=== PATIENT | female | born 1945 | race Caucasian/White ===

== ENCOUNTER 2018-05-18 12:22 | Observation (INO) ==
[2018-05-18] MEDS ORDERED: Acetaminophen 325 MG Tablet PO ONE (13:21)
[2018-05-18 13:29] LABS: Baso % (Auto) 0.3 % (0.0-2.0); Eos % (Auto) 0.2 % (0.0-4.0); Hematocrit 35.5 % (35.0-46.0); Hemoglobin 11.9 gm/dL (11.6-15.3); Lymph # (Auto) 0.4 th/mm3 (1.0-4.8); Lymph % (Auto) 3.9 % (9.0-44.0); Mean Corpuscular HGB Conc 33.5 % (32.0-36.0); Mean Corpuscular Hemoglobin 27.6 pg (27.0-34.0); Mean Corpuscular Volume 82.3 fL (80.0-100.0); Mean Platelet Volume 8.4 fL (7.0-11.0); Mono # (Auto) 0.4 th/mm3 (0.0-0.9); Neut # (Auto) 8.5 th/mm3 (1.8-7.7); Neut % (Auto) 91.6 % (16.0-70.0); Platelet Count 202 th/mm3 (150-450); Red Blood Count 4.32 mil/mm3 (4.00-5.30); White Blood Count 9.2 th/mm3 (4.0-11.0)
--- NOTE | 2018-05-18 13:29 | XR ---
EXAM DATE: 05/18/2018 12:52 PM EDT AGE/SEX: 73 years / Female INDICATIONS: . COPD. Cold symptoms for 7 hours. CLINICAL DATA: This is the patient's initial encounter. Patient reports that signs and symptoms have been present for 1 day and indicates a pain score of 0/10. MEDICAL/SURGICAL HISTORY: None. . Pain pump. COMPARISON: No prior exams available for comparison. FINDINGS: PA lateral views of the chest demonstrate a large area of ill-defined airspace consolidation involvin g the left upper lobe and left lower lobe. The right hemithorax is clear. Heart size is normal. Bony vasculature is normal in caliber. Osseous structures demonstrate severe degenerative changes within t he left glenohumeral joint. Neurostimulator overlying the thoracic spine. CONCLUSION: Multifocal airspace abnormality within the left upper lobe and left upper lobe consistent with multif ocal pneumonia. Recommend follow-up radiographs after appropriate antibiotic therapy to evaluate for resolution. Electronically signed by: Krystal Bullock MD 05/18/2018 1:27 PM EDT
[2018-05-18] MEDS ORDERED: Azithromycin Inj 500 MG in Sodium Chlor 0.9% Inj 250 ML IV.SIG ONE (13:38)
[2018-05-18 13:49] LABS: Albumin 3.2 g/dL (3.4-5.0); Anion Gap 8 meq/L (5-15); Aspartate Aminotransferase 30 U/L (15-37); Blood Urea Nitrogen 16 mg/dL (7-18); Calcium 7.8 mg/dL (8.5-10.1); Carbon Dioxide 27.1 meq/L (21.0-32.0); Chloride 103 meq/L (98-107); Glomerular Filtration Rate 39 mL/min (>89); Glucose,Random 107 mg/dL (74-106); Potassium 4.1 meq/L (3.5-5.1); Sodium 138 meq/L (136-145)
[2018-05-18 13:51] LABS: Alanine Aminotransferase 20 U/L (10-53); Alkaline Phosphatase 76 U/L (45-117); Total Protein 7.1 g/dL (6.4-8.2)
[2018-05-18 14:31] LABS: Bacteria,Urine Moderate /hpf; Bilirubin,Urine Negative (Negative); Clarity,Urine Cloudy (Clear); Color,Urine Yellow (Yellw/Straw); Glucose,Urine (UA) Negative (Negative); Hyaline Casts,Urine 1 /lpf (0-3); Leukocyte Esterase,Urine Negative (Negative); Mucus,Urine Few /lpf (Occasional); Nitrite,Urine Negative (Negative); Specific Gravity,Urine 1.016 (1.002-1.035); Squamous Epithelial Cell,Urine 22 /hpf (0-5)
--- NOTE | 2018-05-18 15:03 | P.HPIM ---
History of Present Illness Primary Care Physician: Hanna Carrillo History of Present Illness: 73 year old female with history of HTN, depression, chronic back pain , and recent pneumonias presenting with cough and shortness of breath starting this morning. She is currently in town on vacation. She lives in the [facility]. She reports she has had two bouts of pneumonia in the past six months, both requiring hospitalizations over a week. She never needed to be intubated. She had a heart catheterization during one of the hospitalizations that was reportedly negative. This morning she woke up with a dry cough and shortness of breath. She endorses chest pain with the cough and chills. She is currently being treated with Bactrim for a UTI but reports continued intermittent dysuria and urinary urgency. She denies sick contacts. She recently travelled [place] plane approximately three weeks ago. She denies a history of heart failure. She complains of mild ankle edema but she states this is chronic for her. She hasn't had a flu shot this season. She states she has been vaccinated twice for pneumonia. Discussed w/ patient's [id number] who is a general practitioner. The patient was suspected to have microaspirations that caused her prior to pneumonias that she believed were both in the right lung. Her last hospitalization was in December. She does not think she has ever had a swallow study and she does not follow with pulmonology. She is grateful her mother in law is being kept overnight because she feels like her pulmonary status has been frail in the last 6 months. PMH: HTN, depression, chronic back pain Surgical hx: hysterectomy, tonsillectomy, ?appendectomy, spinal stimulator, gastric bypass (unsure if [id number] or lap band) Social hx: Lives with in the [facility], drinks EtOH about once a month, nonsmoker (smoked briefly as a teen) Family hx: mother had COPD, father had DM, sisters with RA, MS - Diagnosis (1) Pneumonia [facility] - History History Provided By: Patient, Family Member - Medical History Medical History: Medical History (Last Reviewed 05/18/18 @ 15:02 by DIANELYS Valenzuela) Abscess of lung with pneumonia HTN (hypertension) Pain Spinal cord stimulator status UTI (urinary tract infection) - Tobacco History Smoking Status: Never smoker - Alcohol History How Often Do You Have a Drink Containing Alcohol: Monthly or less - Substance Use History Substance History: No History of Abuse - Travel History Recent Travel in the [place] Within the Last 8 Weeks: No Recent Travel Out of the Country Within the Last 8 Weeks: No - Immunization History Tetanus Immunization: <5 Years Medications and Allergies Allergies Allergy/AdvReac Type Severity Reaction Status Date / Time No Known Allergies Allergy Verified 05/18/18 12:36 Home Medications Medication Instructions Recorded Confirmed Type atenolol 100 mg PO DAILY 05/18/18 05/18/18 History estradiol 1 patch TRANSDERMAL QWEEK 05/18/18 05/18/18 History gabapentin 300 mg PO BID 05/18/18 05/18/18 History hydrochlorothiazide 25 mg PO DAILY 05/18/18 05/18/18 History mirabegron [Myrbetriq] 25 mg PO DAILY 05/18/18 05/18/18 History morphine 15 mg PO Q8HR 05/18/18 05/18/18 History omeprazole 40 mg PO BID 05/18/18 05/18/18 History pantoprazole 40 mg PO BID 05/18/18 05/18/18 History ropinirole [Requip] 1 mg PO DAILY 05/18/18 05/18/18 History sertraline [Zoloft] 100 mg PO DAILY 05/18/18 05/18/18 History sulfamethoxazole-trimethoprim 1 tab PO BID 05/18/18 05/18/18 History [Bactrim DS] trazodone 100 mg PO DAILY 05/18/18 05/18/18 History Exam Vital signs: Vital Signs 05/18/18 12:31 05/18/18 13:00 05/18/18 13:04 Temperature 100.6 F H Pulse Rate 59 L 64 61 Respiratory Rate 20 16 Blood Pressure 132/62 154/60 H Pulse Oximetry 90 L 96 05/18/18 13:41 05/18/18 14:36 Temperature Pulse Rate 64 Respiratory Rate 20 Blood Pressure Pulse Oximetry 96 Intake & Output 05/17/18 05/18/18 05/18/18 18:59 06:59 18:59 Intake Total 100 / 100 Balance 100 / 100 Weight 95.708 kg Intake: IV 100 / 100 Maxipime Inj 1,000 MG In NS Inj 100 / 100 100 ML @ 200 mls/hr IV.SIG ONCE ONE Rx#:[id number] Narrative: GENERAL: WN, WD female resting in bed in [facility]. SKIN: Warm and dry. HEENT: AT/NC. Pupils equal and round. MMM. Nasal cannula in place. NECK: Supple no tender LAD or JVD. HEART: RRR no m/r/g. LUNGS: Left lung cristina with diffuse crackles. ABDOMEN: +BS, soft, NT, ND. EXTREMITIES: Trace LE edema. 2+ pedal pulses. Calves supple with no tenderness. NEURO: Awake and alert. PSYCH: Appropriate mood and affect. Results - Labs CBC & Chem 7: 05/18/18 13:10 05/18/18 13:10 Labs: Short CBC 05/18/18 Range/Units 13:10 WBC 9.2 (4.0-11.0) th/mm3 Hgb 11.9 (11.6-15.3) gm/dL Hct 35.5 (35.0-46.0) % Plt Count 202 (150-450) th/mm3 BMP 05/18/18 13:10 Sodium 138 Potassium 4.1 Chloride 103 Carbon Dioxide 27.1 BUN 16 Creatinine 1.34 H Calcium 7.8 L Liver Function 05/18/18 Range/Units 13:10 Total Bilirubin 0.7 (0.2-1.0) mg/dL AST 30 (15-37) U/L ALT 20 (10-53) U/L Alkaline Phosphatase 76 (45-117) U/L Albumin 3.2 L (3.4-5.0) g/dL Urine 05/18/18 Range/Units 13:30 Urine Color Yellow (Yellw/Straw) Urine Clarity Cloudy H (Clear) Urine pH 5.0 (5.0-8.5) Ur Specific [place] 1.016 (1.002-1.035) Urine Protein Negative (Neg-Trace) mg/dL Urine Glucose (UA) Negative (Negative) mg/dL - Imaging Impressions Chest X-Ray 05/18/18 12:52 CONCLUSION: Multifocal airspace abnormality within the left upper lobe and left upper lobe consistent with multifocal pneumonia. Recommend follow-up radiographs after appropriate antibiotic therapy to evaluate for resolution. Caprini VTE Risk Assessment Caprini VTE Risk Assessment: Moderate/High Risk (score >= 2) Caprini Risk Assessment Model: Point Value = 1 Point Value = 2 Point Value = 3 Point Value = 5 Age 41-60 Minor surgery BMI > 25 kg/m2 Swollen legs Varicose veins or History of unexplained or recurrent spontaneous Oral contraceptives or hormone replacement Sepsis (< 1 month) Serious lung disease, including pneumonia (< 1 month) Abnormal pulmonary function Acute myocardial infarction Congestive heart failure (< 1 month) History of inflammatory bowel disease Medical patient at bed rest Age 61-74 Arthroscopic surgery Major open surgery (> 45 min) Laparoscopic surgery (> 45 min) Malignancy Confined to bed (> 72 hours) Immobilizing plaster cast Central venous access Age >= 75 History of VTE Family history of VTE Factor V Leiden Prothrombin [id number] Lupus anticoagulant Anticardiolipin antibodies Elevated serum homocysteine Heparin-induced thrombocytopenia Other congenital or acquired thrombophilia Stroke (< 1 month) Elective arthroplasty Hip, pelvis, or leg fracture Acute spinal cord injury (< 1 month) Prophylaxis Regimen: Total Risk Factor Score Risk Level Prophylaxis Regimen 0-1 Low Early ambulation 2 Moderate Order ONE of the following: *Sequential Compression Device (SCD) *Heparin 5000 units SQ BID 3-4 Higher Order ONE of the following medications: *Heparin 5000 units SQ TID *Enoxaparin/Lovenox 40 mg SQ daily (WT < 150 kg, CrCl > 30 mL/min) *Enoxaparin/Lovenox 30 mg SQ daily (WT < 150 kg, CrCl > 10-29 mL/min) *Enoxaparin/Lovenox 30 mg SQ BID (WT < 150 kg, CrCl > 30 mL/min) AND/OR *Sequential Compression Device (SCD) 5 or more Highest Order ONE of the following medications: *Heparin 5000 units SQ TID (Preferred with Epidurals) *Enoxaparin/Lovenox 40 mg SQ daily (WT < 150 kg, CrCl > 30 mL/min) *Enoxaparin/Lovenox 30 mg SQ daily (WT < 150 kg, CrCl > 10-29 mL/min) *Enoxaparin/Lovenox 30 mg SQ BID (WT < 150 kg, CrCl > 30 mL/min) AND *Sequential Compression Device (SCD) Assessment and Plan - Assessment (1) Pneumonia Code(s): J18.9 - Pneumonia, unspecified organism Status: Acute - Plan 73 YOWF with history of HTN, chronic back pain, and depression admitted for pneumonia. 1. Pneumonia Temperature 100.6 on admission No leukocytosis and lactic acid within normal limits 90% on room air on admission up to 96% with 2 L CXR showing multifocal pneumonia of the left lobe, personally reviewed by myself PSI class III based on renal disease Supplemental O2 PRN DuoNeb every q6 Albuterol nebs q2h prn Given hospitalization within last 30 days will cover for H CAP with cefepime and azithromycin Influenza antigens pending Blood cultures pending Check Legionella and pneumococcal urinary antigens Unlikely to be aspiration related since it is on the left side and the diffuse nature of the pneumonia, however will check a swallow study given prior concern for recurrent aspiration pneumonia 2. Renal insufficiency Patient denies any history of kidney disease and this is her first hospitalization here so no baseline to compare Was on Bactrim as outpatient which could be contributing Creatinine 1.34, BUN 16, and estimated GFR 39 Avoid nephrotoxic agents Continue monitor renal function 3. UTI Diagnosed an outpatient and has been on Bactrim for a few days UA showing moderate bacteria and occasional yeast and patient otherwise asymptomatic Urine culture pending Will cover with cefepime for now 4. Hypertension Resume home meds and monitor 5. Chronic back pain Spinal stimulator in place Resume home morphine and gabapentin 6. Depression Continue home Zoloft and trazodone DVT prophylaxis: Heparin BID Code Status: FULL Discussed Condition With: Patient and family (1) Pneumonia Qualifiers: Pneumonia type: due to unspecified organism Laterality: left Lung location: lower lobe of lung Qualified Code(s): J18.1 - Lobar pneumonia, unspecified organism
--- NOTE | 2018-05-18 15:05 | ED ---
HPI General Chief Complaint: Respiratory Symptoms Stated Complaint: respiratory Time Seen by Provider: 05/18/18 12:37 Source: patient and family Mode of arrival: wheelchair Limitations: no limitations History of Present Illness HPI Narrative: 73-year-old female with a substantial history of pneumonia in the past, back problems as well as diabetes. Patient presents here today complaining of cough and congestion and shortness of breath as well as not feeling well. Per patient she is had 2 episodes of pneumonia this year. Per patient her first time she was admitted for 10 days and the second time she was admitted for 8 days. Per patient she has been on antibiotics for the past weeks for a UTI. She is taking Bactrim twice a day. States that her urine symptoms appear to have improved but she continues to have some symptoms there. Per patient her main complaint is that she is having cough and congestion and some shortness of breath. She does not use oxygen at home. She denies any trauma. No recent travel although she did went to [place] about 3 weeks ago but had no symptoms at the time. She denies any history of COPD. Denies any history of asthma. Has not seen anybody for this. States that currently she has no pain. Per patient she does have a lot of bad cough. No history of heart failure. States having fevers chills and sweats. Related Data Home Medications Medication Instructions Recorded Confirmed atenolol 100 mg PO DAILY 05/18/18 05/18/18 estradiol 1 patch TRANSDERMAL QWEEK 05/18/18 05/18/18 gabapentin 300 mg PO BID 05/18/18 05/18/18 hydrochlorothiazide 25 mg PO DAILY 05/18/18 05/18/18 mirabegron [Myrbetriq] 25 mg PO DAILY 05/18/18 05/18/18 morphine 15 mg PO Q8HR 05/18/18 05/18/18 omeprazole 40 mg PO BID 05/18/18 05/18/18 pantoprazole 40 mg PO BID 05/18/18 05/18/18 ropinirole [Requip] 1 mg PO DAILY 05/18/18 05/18/18 sertraline [Zoloft] 100 mg PO DAILY 05/18/18 05/18/18 sulfamethoxazole-trimethoprim 1 tab PO BID 05/18/18 05/18/18 [Bactrim DS] trazodone 100 mg PO DAILY 05/18/18 05/18/18 Allergies Allergy/AdvReac Type Severity Reaction Status Date / Time No Known Allergies Allergy Verified 05/18/18 12:36 Review of Systems ROS: all other systems reviewed are negative [facility], [facility] Medical History Medical History Abscess of lung with pneumonia (Acute) HTN (hypertension) (Acute) Pain (Acute) Spinal cord stimulator status (Acute) UTI (urinary tract infection) (Acute) Social History Social History Substance History: No History of Abuse Smoking Status: Never smoker How Often Do You Have a Drink Containing Alcohol: Monthly or less Recent Travel in [facility] within the Last 8 Weeks: No Recent Out of Country Travel within the Last 8 Weeks: No Immunization History Tetanus Immunization: <5 Years Exam Narrative Exam Narrative: GENERAL: Well appearing SKIN: Focused skin assessment warm/dry. HEAD: Atraumatic. Normocephalic. EYES: Pupils equal and round. No scleral icterus. No injection or drainage. ENT: No nasal bleeding or discharge. Mucous membranes pink and moist. Tongue is midline. No uvula deviation. TMs are clear with no sign of infection or perforation. NECK: Trachea midline. No JVD. CARDIOVASCULAR: Regular rate and rhythm. No murmur appreciated. RESPIRATORY: No accessory muscle use. Wheezing and rales heard especially in the left lower lung field. Breath sounds equal bilaterally. GASTROINTESTINAL: Abdomen soft, non-tender, nondistended. Hepatic and splenic margins not palpable. MUSCULOSKELETAL: No obvious deformities. No clubbing. No cyanosis. No edema. Full range of motion of the upper and lower extremities bilaterally. 2+ pulses bilaterally. NEUROLOGICAL: Awake and alert. No obvious cranial nerve deficits. Motor grossly within normal limits. Normal speech. PSYCHIATRIC: Appropriate mood and affect; insight and judgment normal. Course Initial Documented Vital Signs Temperature 100.6 F H 05/18/18 12:31 Pulse Rate 59 L 05/18/18 12:31 Blood Pressure 132/62 05/18/18 12:31 Pulse Oximetry 90 L 05/18/18 12:31 Last Documented Vital Signs Temperature 100.6 F H 05/18/18 12:31 Pulse Rate 64 05/18/18 14:36 Respiratory Rate 20 05/18/18 14:36 Blood Pressure 154/60 H 05/18/18 13:04 Pulse Oximetry 96 05/18/18 13:41 Medical Decision Making SOLOMON Attestation SOLOMON supervised visit: Yes Attestation: I, Dr. Huang, have reviewed the advance practice practitioner's documentation and am in agreement, met with the patient face to face, made the diagnosis, and the medical decision making was done by me. *My assessment and Findings: Patient was seen and evaluated with PA, please see PA notes for further details. She has been on Bactrim for UTI, is coming in for coughing, shortness of breath, and on exam is wheezing. Chest x-ray showing pneumonia left-sided infiltrates worse in the right. Considering that she has been on antibiotics readiness L having worsening in, patient has been treated with IV antibiotics after cultures are drawn and nebulizers were initiated in the ER. Planning to admit for further treatment. MDM Narrative Medical decision making narrative: 73-year-old female that presents to the ED for evaluation of cold-like symptoms. Patient was properly examined and was found to have signs and symptoms consistent concerning for pneumonia. Patient is tachycardic, hypoxic in the 90s without oxygen and appears to have a fever. Labs and imaging were ordered. Labs and imaging were consistent with appears to be multilevel pneumonia on the left side. With patient's history of already been on Bactrim for antibiotics there is concerned that this will not improve with IV antibiotics. Patient is also hypoxic without oxygen. Patient does not routinely use oxygen at home. At this time recommendation is for admission for him for further evaluation and treatment. Case discussed with Dr. Verde who agrees to admission. Case discussed with the patient's family and patient who agree with plan. Case discussed with my attending who agrees with plan. Medical Screen Exam Complete: Yes Emergency Medical Condition: Yes Differential Diagnosis Differential Diagnosis: Pneumonia versus community pneumonia versus failed outpatient treatment versus UTI versus sepsis versus hypoxia Medical Records Medical records reviewed: Yes I reviewed the patient's medical records. Lab Data Lab results reviewed: Yes I reviewed the patient's lab results. Result diagrams: 05/18/18 13:10 05/18/18 13:10 Lab Results 05/18/18 05/18/18 05/18/18 Range/Units 13:10 13:10 13:10 WBC 9.2 (4.0-11.0) th/mm3 RBC 4.32 (4.00-5.30) mil/mm3 Hgb 11.9 (11.6-15.3) gm/dL Hct 35.5 (35.0-46.0) % MCV 82.3 (80.0-100.0) fL MCH 27.6 (27.0-34.0) pg MCHC 33.5 (32.0-36.0) % RDW 16.0 (11.6-17.2) % Plt Count 202 (150-450) th/mm3 MPV 8.4 (7.0-11.0) fL Neut % (Auto) 91.6 H (16.0-70.0) % Lymph % (Auto) 3.9 L (9.0-44.0) % [place] % (Auto) 4.0 (0.0-8.0) % Eos % (Auto) 0.2 (0.0-4.0) % Baso % (Auto) 0.3 (0.0-2.0) % Neut # (Auto) 8.5 H (1.8-7.7) th/mm3 Lymph # (Auto) 0.4 L (1.0-4.8) th/mm3 [place] # (Auto) 0.4 (0.0-0.9) th/mm3 Eos # (Auto) 0.0 (0.0-0.4) th/mm3 Baso # (Auto) 0.0 (0.0-0.2) th/mm3 WBC Differential . Differential Comment Auto diff final Sodium 138 (136-145) meq/L Potassium 4.1 (3.5-5.1) meq/L Chloride 103 (98-107) meq/L Carbon Dioxide 27.1 (21.0-32.0) meq/L Anion Gap 8 (5-15) meq/L BUN 16 (7-18) mg/dL Creatinine 1.34 H (0.50-1.00) mg/dL Estimated GFR 39 L (>89) mL/min Random Glucose 107 H (74-106) mg/dL Lactic Acid (0.4-2.0) mmol/L Calcium 7.8 L (8.5-10.1) mg/dL Total Bilirubin 0.7 (0.2-1.0) mg/dL AST 30 (15-37) U/L ALT 20 (10-53) U/L Alkaline Phosphatase 76 (45-117) U/L B-Natriuretic Peptide 260 H (0-100) pg/mL Total Protein 7.1 (6.4-8.2) g/dL Albumin 3.2 L (3.4-5.0) g/dL Urine Color (Yellw/Straw) Urine Clarity (Clear) Urine pH (5.0-8.5) Ur Specific [place] (1.002-1.035) Urine Protein (Neg-Trace) mg/dL Urine Glucose (UA) (Negative) mg/dL Urine Ketones (Negative) mg/dL Urine Occult Blood (Negative) Urine Nitrate (Negative) Urine Bilirubin (Negative) Urine Urobilinogen (Less than 2) mg/dL Ur Leukocyte Esterase (Negative) Urine RBC (0-3) /hpf Urine WBC (0-5) /hpf Ur Squamous Epith Cells (0-5) /hpf Urine Bacteria (None) /hpf Hyaline Casts (0-3) /lpf Urine Mucus (Occasional) /lpf Urine Yeast (None) /hpf Micro UA Comment Ur Microscopic Review Urine Culture Comments 05/18/18 05/18/18 Range/Units 13:10 13:30 WBC (4.0-11.0) th/mm3 RBC (4.00-5.30) mil/mm3 Hgb (11.6-15.3) gm/dL Hct (35.0-46.0) % MCV (80.0-100.0) fL MCH (27.0-34.0) pg MCHC (32.0-36.0) % RDW (11.6-17.2) % Plt Count (150-450) th/mm3 MPV (7.0-11.0) fL Neut % (Auto) (16.0-70.0) % Lymph % (Auto) (9.0-44.0) % [place] % (Auto) (0.0-8.0) % Eos % (Auto) (0.0-4.0) % Baso % (Auto) (0.0-2.0) % Neut # (Auto) (1.8-7.7) th/mm3 Lymph # (Auto) (1.0-4.8) th/mm3 [place] # (Auto) (0.0-0.9) th/mm3 Eos # (Auto) (0.0-0.4) th/mm3 Baso # (Auto) (0.0-0.2) th/mm3 WBC Differential Differential Comment Sodium (136-145) meq/L Potassium (3.5-5.1) meq/L Chloride (98-107) meq/L Carbon Dioxide (21.0-32.0) meq/L Anion Gap (5-15) meq/L BUN (7-18) mg/dL Creatinine (0.50-1.00) mg/dL Estimated GFR (>89) mL/min Random Glucose (74-106) mg/dL Lactic Acid 1.7 (0.4-2.0) mmol/L Calcium (8.5-10.1) mg/dL Total Bilirubin (0.2-1.0) mg/dL AST (15-37) U/L ALT (10-53) U/L Alkaline Phosphatase (45-117) U/L B-Natriuretic Peptide (0-100) pg/mL Total Protein (6.4-8.2) g/dL Albumin (3.4-5.0) g/dL Urine Color Yellow (Yellw/Straw) Urine Clarity Cloudy H (Clear) Urine pH 5.0 (5.0-8.5) Ur Specific [place] 1.016 (1.002-1.035) Urine Protein Negative (Neg-Trace) mg/dL Urine Glucose (UA) Negative (Negative) mg/dL Urine Ketones Negative (Negative) mg/dL Urine Occult Blood Negative (Negative) Urine Nitrate Negative (Negative) Urine Bilirubin Negative (Negative) Urine Urobilinogen 2.0 H (Less than 2) mg/dL Ur Leukocyte Esterase Negative (Negative) Urine RBC 1 (0-3) /hpf Urine WBC 1 (0-5) /hpf Ur Squamous Epith Cells 22 (0-5) /hpf Urine Bacteria Moderate H (None) /hpf Hyaline Casts 1 (0-3) /lpf Urine Mucus Few H (Occasional) /lpf Urine Yeast Occasional H (None) /hpf Micro UA Comment Culture indicated Ur Microscopic Review Not Reportable Urine Culture Comments Culture indicated Imaging Data Attestation: I personally reviewed and interpreted this imaging study as follows : Radiologist's impression: Chest X-Ray 05/18/18 12:52 CONCLUSION: Multifocal airspace abnormality within the left upper lobe and left upper lobe consistent with multifocal pneumonia. Recommend follow-up radiographs after appropriate antibiotic therapy to evaluate for resolution. Discharge Plan Discharge Disposition Patient Disposition: 30 Still Patient Discharge Details Diagnosis: Pneumonia Physicians Team ED Provider: Benjamin Huang ED Midlevel Provider: Stephen Donovan Attending Provider: Jaleesa Pereira Status ED Status: Admitted Patient
[2018-05-18] MEDS ORDERED: Acetaminophen 325 MG Tablet PO PRN (15:17)
[2018-05-18] MEDS ORDERED: Bisacodyl 10 MG Supp RECTAL PRN (15:17)
[2018-05-18] MEDS ORDERED: traZODone 100 MG Tablet PO SCH (21:00)
[2018-05-18] MEDS: Heparin - SQ 10,000 UNITS/ML Vial SQ SCH (22:18)
[2018-05-18] MEDS: Gabapentin 300 MG Capsule PO SCH (22:19)
[2018-05-18] MEDS: Senna/Docusate Sodium 8.6/50 MG Tablet PO SCH ×2 (22:20→22:28)
[2018-05-18] MEDS: Morphine Sulfate 15 MG IR Tablet PO SCH (22:20)
[2018-05-19] MEDS: Morphine Sulfate 15 MG IR Tablet PO SCH (06:40)
[2018-05-19 07:58] LABS: Baso % (Auto) 0.3 % (0.0-2.0); Eos # (Auto) 0.1 th/mm3 (0.0-0.4); Eos % (Auto) 0.9 % (0.0-4.0); Hematocrit 27.1 % (35.0-46.0); Hemoglobin 9.4 gm/dL (11.6-15.3); Lymph % (Auto) 18.8 % (9.0-44.0); Mean Corpuscular HGB Conc 34.8 % (32.0-36.0); Mean Corpuscular Hemoglobin 28.3 pg (27.0-34.0); Mean Corpuscular Volume 81.3 fL (80.0-100.0); Mean Platelet Volume 8.4 fL (7.0-11.0); Mono # (Auto) 0.3 th/mm3 (0.0-0.9); Mono % (Auto) 5.6 % (0.0-8.0); Neut % (Auto) 74.4 % (16.0-70.0); Platelet Count 134 th/mm3 (150-450); Red Blood Count 3.33 mil/mm3 (4.00-5.30); Red Cell Distribution Width 15.8 % (11.6-17.2); White Blood Count 5.4 th/mm3 (4.0-11.0)
[2018-05-19 08:15] VITALS: BP 125/59; PULSE 67; RESP 16; TEMP 98.6; O2SAT 95
[2018-05-19 08:25] LABS: Calcium 7.7 mg/dL (8.5-10.1); Carbon Dioxide 29.9 meq/L (21.0-32.0); Potassium 3.4 meq/L (3.5-5.1)
--- NOTE | 2018-05-19 08:32 | P.DS ---
Date of admission: 05/18/18 14:53 Primary care physician: Hanna Carrillo Attending physician on discharge: Jaleesa Pereira Anticipated date of discharge: 05/19/18 Brief History from admission: 73 year old female with history of HTN, depression, chronic back pain , and recent pneumonias presenting with cough and shortness of breath starting this morning. She is currently in town on vacation. She lives in the [facility]. She reports she has had two bouts of pneumonia in the past six months, both requiring hospitalizations over a week. She never needed to be intubated. She had a heart catheterization during one of the hospitalizations that was reportedly negative. This morning she woke up with a dry cough and shortness of breath. She endorses chest pain with the cough and chills. She is currently being treated with Bactrim for a UTI but reports continued intermittent dysuria and urinary urgency. She denies sick contacts. [place] three weeks ago. She denies a history of heart failure. She complains of mild ankle edema but she states this is chronic for her. She hasn't had a flu shot this season. She states she has been vaccinated twice for pneumonia. Discussed w/ patient's [id number] who is a general practitioner. The patient was suspected to have microaspirations that caused her prior to pneumonias that she believed were both in the right lung. Her last hospitalization was in December. She does not think she has ever had a swallow study and she does not follow with pulmonology. She is grateful her mother in law is being kept overnight because she feels like her pulmonary status has been frail in the last 6 months. PMH: HTN, depression, chronic back pain Surgical hx: hysterectomy, tonsillectomy, ?appendectomy, spinal stimulator, gastric bypass (unsure if Soo-en-[id number] or lap band) Social hx: Lives with in the [facility], drinks EtOH about once a month, nonsmoker (smoked briefly as a teen) Family hx: mother had COPD, father had DM, sisters with RA, MS Patient update on day of discharge: Patient off of oxygen and maintaining saturations around 96%. She reports feeling much better than yesterday. She continues to have a dry cough but this has improved. She is no longer feeling short of breath. She is ambulating without difficulties. She denies chest pain, wheezing, abdominal pain, nausea, or vomiting. She is tolerating PO intake. She feels ready to go home. She is in town for one more day then [place] She reports she will follow-up with her PCP this week. DS: Diagnosis - Discharge Diagnosis (1) Pneumonia Status: Acute DS: Medications - Discharge Medications Prescriptions: amoxicillin 500 mg PO TID #18 tab azithromycin 250 mg PO DAILY #4 tab DS: Summary Hospital Course: 73 YOWF with history of HTN, depression, GERD, and chronic pain admitted on for community-acquired pneumonia requiring supplemental O2. She was treated with Rocephin and Azithromycin with improvement in her symptoms. She was able to come off oxygen. She was discharged in stable condition on 05/19 with a course of amoxicillin and Azithromycin. - Time Spent with Patient Total time spent providing and/or coordinating discharge services: Less than 30 minutes - Quality: VTE Deep Vein Thrombosis/Pulmonary Embolism Present on Admission: No Exam Vital signs: Vital Signs 05/18/18 12:31 05/18/18 13:00 05/18/18 13:04 Temperature 100.6 F H Pulse Rate 59 L 64 61 Respiratory Rate 20 16 Blood Pressure 132/62 154/60 H Pulse Oximetry 90 L 96 05/18/18 13:41 05/18/18 14:36 05/18/18 15:40 Temperature Pulse Rate 64 74 Respiratory Rate 20 Blood Pressure 117/57 L Pulse Oximetry 96 05/18/18 15:53 05/18/18 16:50 05/18/18 19:16 Temperature 98.5 F 99 F Pulse Rate 79 73 63 Respiratory Rate 20 18 Blood Pressure 81/45 L 95/52 L 112/53 L Pulse Oximetry 95 95 96 05/18/18 19:25 05/18/18 22:57 05/19/18 02:15 Temperature 98.9 F Pulse Rate 78 76 54 L Respiratory Rate 18 18 18 Blood Pressure 128/60 131/60 Pulse Oximetry 99 95 99 05/19/18 04:00 05/19/18 07:22 05/19/18 08:00 Temperature 97.8 F 98.6 F Pulse Rate 54 L 54 L 67 Respiratory Rate 18 18 16 Blood Pressure 102/53 L 125/59 L Pulse Oximetry 96 96 95 Intake & Output 05/18/18 05/19/18 05/19/18 18:59 06:59 18:59 Intake Total 350 / 350 100 / 100 Balance 350 / 350 100 / 100 Weight 95.708 kg Intake: IV 350 / 350 100 / 100 Azithromycin Inj 500 MG In NS 250 / 250 Inj 250 ML @ 250 mls/hr IV.SIG ONCE ONE Rx#:[id number] Maxipime Inj 1,000 MG In NS Inj 100 / 100 100 ML @ 200 mls/hr IV.SIG ONCE ONE Rx#:[id number] Rocephin Inj 1,000 MG In NS Inj 100 / 100 100 ML @ 200 mls/hr IV.SIG Q24H MARIA ISABEL Rx#:[id number] Other: Date of Last Bowel Movement 05/17/18 05/17/18 Weight On Admission 95.708 kg Narrative: GENERAL: WN, WD pleasant female resting in bed in [facility]. SKIN: Warm and dry. HEENT: AT/NC. Pupils equal and round. MMM. NECK: Supple no tender LAD or JVD. HEART: RRR no m/r/g. LUNGS: Breathing comfortably on room air. Left basilar crackles but improved from prior studies. There is good air entry. No wheezing. ABDOMEN: +BS, soft, NT, ND. EXTREMITIES: Trace LE edema. Calves supple. NEURO: Awake and alert. PSYCH: Appropriate mood and affect. Results Procedures completed during hospitalization: None Labs on day of discharge: Labs from last 24 hours 05/19/18 05/19/18 05/18/18 06:38 06:38 23:57 WBC 5.4 RBC 3.33 L Hgb 9.4 L D Hct 27.1 L MCV 81.3 MCH 28.3 MCHC 34.8 RDW 15.8 Plt Count 134 L D MPV 8.4 Neut % (Auto) 74.4 H Lymph % (Auto) 18.8 [place] % (Auto) 5.6 Eos % (Auto) 0.9 Baso % (Auto) 0.3 Neut # (Auto) 4.0 Lymph # (Auto) 1.0 [place] # (Auto) 0.3 Eos # (Auto) 0.1 Baso # (Auto) 0.0 WBC Differential . Differential Comment Auto diff final Sodium 139 Potassium 3.4 L Chloride 103 Carbon Dioxide 29.9 Anion Gap 6 BUN 17 Creatinine 1.14 H Estimated GFR 47 L Random Glucose 84 Lactic Acid Calcium 7.7 L Total Bilirubin AST ALT Alkaline Phosphatase Troponin I 0.07 H B-Natriuretic Peptide Total Protein Albumin Urine Color Urine Clarity Urine pH Ur Specific [place] Urine Protein Urine Glucose (UA) Urine Ketones Urine Occult Blood Urine Nitrate Urine Bilirubin Urine Urobilinogen Ur Leukocyte Esterase Urine RBC Urine WBC Ur Squamous Epith Cells Urine Bacteria Hyaline Casts Urine Mucus Urine Yeast Micro UA Comment Ur Microscopic Review Urine Culture Comments 05/18/18 05/18/18 05/18/18 18:58 13:30 13:10 WBC RBC Hgb Hct MCV MCH MCHC RDW Plt Count MPV Neut % (Auto) Lymph % (Auto) [place] % (Auto) Eos % (Auto) Baso % (Auto) Neut # (Auto) Lymph # (Auto) [place] # (Auto) Eos # (Auto) Baso # (Auto) WBC Differential Differential Comment Sodium Potassium Chloride Carbon Dioxide Anion Gap BUN Creatinine Estimated GFR Random Glucose Lactic Acid Calcium Total Bilirubin AST ALT Alkaline Phosphatase Troponin I 0.08 H 0.08 H B-Natriuretic Peptide Total Protein Albumin Urine Color Yellow Urine Clarity Cloudy H Urine pH 5.0 Ur Specific [place] 1.016 Urine Protein Negative Urine Glucose (UA) Negative Urine Ketones Negative Urine Occult Blood Negative Urine Nitrate Negative Urine Bilirubin Negative Urine Urobilinogen 2.0 H Ur Leukocyte Esterase Negative Urine RBC 1 Urine WBC 1 Ur Squamous Epith Cells 22 Urine Bacteria Moderate H Hyaline Casts 1 Urine Mucus Few H Urine Yeast Occasional H Micro UA Comment Culture indicated Ur Microscopic Review Not Reportable Urine Culture Comments Culture indicated 05/18/18 05/18/18 05/18/18 13:10 13:10 13:10 WBC RBC Hgb Hct MCV MCH MCHC RDW Plt Count MPV Neut % (Auto) Lymph % (Auto) [place] % (Auto) Eos % (Auto) Baso % (Auto) Neut # (Auto) Lymph # (Auto) [place] # (Auto) Eos # (Auto) Baso # (Auto) WBC Differential Differential Comment Sodium 138 Potassium 4.1 Chloride 103 Carbon Dioxide 27.1 Anion Gap 8 BUN 16 Creatinine 1.34 H Estimated GFR 39 L Random Glucose 107 H Lactic Acid 1.7 Calcium 7.8 L Total Bilirubin 0.7 AST 30 ALT 20 Alkaline Phosphatase 76 Troponin I B-Natriuretic Peptide 260 H Total Protein 7.1 Albumin 3.2 L Urine Color Urine Clarity Urine pH Ur Specific [place] Urine Protein Urine Glucose (UA) Urine Ketones Urine Occult Blood Urine Nitrate Urine Bilirubin Urine Urobilinogen Ur Leukocyte Esterase Urine RBC Urine WBC Ur Squamous Epith Cells Urine Bacteria Hyaline Casts Urine Mucus Urine Yeast Micro UA Comment Ur Microscopic Review Urine Culture Comments 05/18/18 13:10 WBC 9.2 RBC 4.32 Hgb 11.9 Hct 35.5 MCV 82.3 MCH 27.6 MCHC 33.5 RDW 16.0 Plt Count 202 MPV 8.4 Neut % (Auto) 91.6 H Lymph % (Auto) 3.9 L [place] % (Auto) 4.0 Eos % (Auto) 0.2 Baso % (Auto) 0.3 Neut # (Auto) 8.5 H Lymph # (Auto) 0.4 L [place] # (Auto) 0.4 Eos # (Auto) 0.0 Baso # (Auto) 0.0 WBC Differential . Differential Comment Auto diff final Sodium Potassium Chloride Carbon Dioxide Anion Gap BUN Creatinine Estimated GFR Random Glucose Lactic Acid Calcium Total Bilirubin AST ALT Alkaline Phosphatase Troponin I B-Natriuretic Peptide Total Protein Albumin Urine Color Urine Clarity Urine pH Ur Specific [place] Urine Protein Urine Glucose (UA) Urine Ketones Urine Occult Blood Urine Nitrate Urine Bilirubin Urine Urobilinogen Ur Leukocyte Esterase Urine RBC Urine WBC Ur Squamous Epith Cells Urine Bacteria Hyaline Casts Urine Mucus Urine Yeast Micro UA Comment Ur Microscopic Review Urine Culture Comments - Impressions ITS Impressions Chest X-Ray 05/18/18 12:52 CONCLUSION: Multifocal airspace abnormality within the left upper lobe and left upper lobe consistent with multifocal pneumonia. Recommend follow-up radiographs after appropriate antibiotic therapy to evaluate for resolution. Discharge Plan - Discharge Disposition Patient Disposition: 01 Discharge Home - Discharge Condition Condition: Stable - Discharge Order Discharge Orders: Discharge Order (Routine); Ordered 05/19/18 Ordered By: Jaleesa Pereira - Discharge Details Anticipated Discharge Date: 05/19/18 - Physicians Team Attending Provider: Jaleesa Pereira
[2018-05-19] MEDS ORDERED: Sertraline 100 MG Tablet PO SCH (09:00)
[2018-05-19] MEDS ORDERED: Azithromycin 250 MG Tablet PO SCH (09:00)
[2018-05-19] MEDS ORDERED: hydroCHLOROthiazide 25 MG Tablet PO SCH (09:00)
[2018-05-19] MEDS ORDERED: Atenolol 100 MG Tablet PO SCH (09:00)
[2018-05-19] MEDS ORDERED: MIRABEGRON 25 MG PO SCH (09:00)
[2018-05-19] MEDS: Senna/Docusate Sodium 8.6/50 MG Tablet PO SCH (09:10)
[2018-05-19] MEDS: Heparin - SQ 10,000 UNITS/ML Vial SQ SCH (09:10)
[2018-05-19] MEDS: Gabapentin 300 MG Capsule PO SCH (09:13)
--- NOTE | 2018-05-19 15:19 | ECG ---
Date Performed: 05/18/2018 Time Performed: 12:42:54 PTAGE: 73 years EKG: SINUS BRADYCARDIA BORDERLINE ECG NO PREVIOUS TRACING DOCTOR: Toy Jaimes Interpretating Date/Time 05/19/2018 15:18:12
== END 2018-05-19 09:57 | disposition home or self-care (01) ==
LOC: NEPE 12:22 → NEDA 14:53 → INTOOBSV 14:53 → NEDA 15:47 → NEPFCDU 15:52
PROVIDERS: ADMIT Family Medicine; ATTEND Family Medicine
DX: R60.0 Localized edema; J18.1 Lobar pneumonia, unspecified organism; I10 Essential (primary) hypertension; R06.02 Shortness of breath; G89.29 Other chronic pain; R05 Cough; M54.9 Dorsalgia, unspecified; F32.9 Major depressive disorder, single episode, unspecified; E11.9 Type 2 diabetes mellitus without complications; Z87.01 Personal history of pneumonia (recurrent)